=== PATIENT | male | born 1940 | race Caucasian/White ===

== ENCOUNTER 2018-05-04 10:34 | Day surgery (SDC) | payer MEDICARE, BC ==
[~2018-05-04] VITALS: Ht 182.9 cm; Wt 76.7 kg
[2018-05-04] VITALS (10 sets, daily range): BP systolic 112–153; BP diastolic 51–76
[2018-05-04] MEDS ORDERED: sod bicarbonate 150mEq in D5W 1,150 ML IV ONE (11:00)
[2018-05-04] MEDS ORDERED: diphenhydrAMINE 25mg capsule PO PRN (11:00)
[2018-05-04] MEDS ORDERED: CLOP75TA15 PO (11:05)
[2018-05-04] MEDS ORDERED: HYDR12.5 PO (11:05)
[2018-05-04] MEDS ORDERED: ESOM20CA PO (11:05)
[2018-05-04] MEDS ORDERED: FERR-119 PO (11:05)
[2018-05-04] MEDS ORDERED: BISO1TAB38 PO (11:05)
[2018-05-04] MEDS ORDERED: ATOR20TA PO (11:05)
[2018-05-04] MEDS ORDERED: BISO5TAB PO (11:05)
[2018-05-04] MEDS ORDERED: SPIR25TA5 PO (11:05)
[2018-05-04] MEDS ORDERED: EZET10TA14 PO (11:05)
[2018-05-04] MEDS ORDERED: CHOL10002 PO (11:05)
[2018-05-04] MEDS ORDERED: CALC-336 PO (11:05)
[2018-05-04] MEDS ORDERED: normal saline 1000ml 1,000 ML IV SCH ×2 (11:25→12:35)
[2018-05-04 11:46] LABS: BASOPHILS % (AUTO) 0.4 % (0-1); EOSINOPHILS # (AUTO) 0.2 X10'3 (0-0.9); EOSINOPHILS % (AUTO) 2.1 % (0-6); HEMATOCRIT 41.7 % (42.0-52.0); HEMOGLOBIN 13.6 g/dl (14.0-17.9); LYMPHOCYTES # (AUTO) 2.1 X10'3 (1.1-4.8); LYMPHOCYTES % (AUTO) 20.7 % (21-51); MEAN CORPUSCULAR HEMOGLOBIN 31.7 PG (27.0-31.0); MEAN CORPUSCULAR HGB CONC 32.7 % (33.0-36.5); MEAN CORPUSCULAR VOLUME 96.8 FL (78-98); MEAN PLATELET VOLUME 8.8 FL (7.4-10.4); MONOCYTES % (AUTO) 10.5 % (2-12); NEUTROPHILS # (AUTO) 6.6 X10'3 (1.8-7.7); NEUTROPHILS % (AUTO) 66.3 % (42-75); PLATELET COUNT 196 X10'3 (140-440); RED BLOOD COUNT 4.31 X10'6 (4.70-6.10); RED CELL DISTRIBUTION WIDTH 13.4 % (11.5-14.5); WHITE BLOOD COUNT 9.9 X10'3 (4.5-11.0)
[2018-05-04 11:54] LABS: ALBUMIN 3.3 G/DL (3.4-5.0); ANION GAP 9 (8-16); BLOOD UREA NITROGEN 18 MG/DL (7-18); BUN/CREATININE RATIO 13.8 (5.4-32.0); CALCIUM 9.5 MG/DL (8.5-10.1); CHLORIDE 103 MMOL/L (99-107); GLUCOSE 107 MG/DL (70-104); MAGNESIUM 1.8 MG/DL (1.5-2.4); POTASSIUM 3.8 MMOL/L (3.5-5.1); SODIUM 139 MMOL/L (135-145); TOTAL CARBON DIOXIDE 27.5 MMOL/L (24-32); eGFR 53 ML/MIN
[2018-05-04 12:09] LABS: INR 1.1 INR; PROTHROMBIN TIME 10.7 SECONDS (9.0-12.0)
[2018-05-04] MEDS ORDERED: nitroGLYCERIN-Tridil 50MG/D5W 250 ML IV ONE (12:24)
[2018-05-04] MEDS ORDERED: iohexol 350 MG/ML 50ML vial IV ONE (12:25)
[2018-05-04] MEDS ORDERED: midazolam 2 mg/2 ml injection ONE ×2 (12:25→13:11)
[2018-05-04] MEDS ORDERED: iohexol 350MG/ML 100ml bottle IV ONE (12:25)
[2018-05-04] MEDS ORDERED: LIDOcaine 1% (10mg/ml)w/preservative injection 20ml MDV ONE (12:25)
[2018-05-04] MEDS ORDERED: heparin 1,000unit/ml 10ml vial 10 ML ONE (12:25)
[2018-05-04] MEDS ORDERED: fentaNYL/PF 50MCG/1 ML 2ML syringe ONE (12:25)
[2018-05-04] MEDS ORDERED: verapamil 2.5 mg/ml inj IV ONE (12:26)
== END 2018-05-04 17:00 | disposition home or self-care (01) ==
LOC: SSTAY O 10:34
PROVIDERS: ATTEND Internal Medicine Cardiovascular Disease
DX: I25.118 Atherosclerotic heart disease of native coronary artery with other forms of angina pectoris (principal); I45.19 Other right bundle-branch block; I10 Essential (primary) hypertension; E78.5 Hyperlipidemia, unspecified; H91.8X3 Other specified hearing loss, bilateral; Z72.89 Other problems related to lifestyle; Z95.5 Presence of coronary angioplasty implant and graft; Z79.01 Long term (current) use of anticoagulants; Z86.14 Personal history of Methicillin resistant Staphylococcus aureus infection; Z87.442 Personal history of urinary calculi; Z96.652 Presence of left artificial knee joint; Z79.899 Other long term (current) drug therapy; Z98.890 Other specified postprocedural states; Z80.9 Family history of malignant neoplasm, unspecified
CPT/HCPCS: 36415; 80048; 83735; 85025; 85610; 93005; 93458; 99152; 99153; J1644; J2001; J2250; J3010; J7030; Q0163; Q9967; A4620; C1769; C1894; J3490

== ENCOUNTER 2018-05-18 05:32 | Inpatient (IN) | payer MEDICARE, BC ==
[2018-05-16 13:26] LABS: ABG BASE EXCESS 0.2 mmol/L (-2.0-3.0); ABG HCO3 23.3 mmol/L (22.0-26.0); ABG OXYGEN SATURATION 95.8 % (95-98); ABG PCO2 (T) 33.7 mmHg (35.0-48.0); ABG PH (T) 7.458 (7.350-7.450); ABG PO2 (T) 78.5 mmHg (83-108); ALLEN'S TEST Positive; FCOHb 0.6 % (0.5-1.5); FMetHb 0.1 % (0.3-1.12); FO2Hb 95.1 % (94-100); TOTAL HEMOGLOBIN 14.9 G/dl (14.0-18.0)
[2018-05-16 13:46] LABS: BASOPHILS % (AUTO) 0.3 % (0-1); EOSINOPHILS # (AUTO) 0.1 X10'3 (0-0.9); EOSINOPHILS % (AUTO) 1.2 % (0-6); LYMPHOCYTES % (AUTO) 19.8 % (21-51); MEAN CORPUSCULAR HGB CONC 33.2 % (33.0-36.5); MEAN CORPUSCULAR VOLUME 96.5 FL (78-98); MEAN PLATELET VOLUME 8.8 FL (7.4-10.4); MONOCYTES # (AUTO) 1.1 X10'3 (0-0.9); MONOCYTES % (AUTO) 10.5 % (2-12); NEUTROPHILS # (AUTO) 7.1 X10'3 (1.8-7.7); NEUTROPHILS % (AUTO) 68.2 % (42-75); PRE OP HEMATOCRIT 41.9 % (42.0-52.0); PRE OP HEMOGLOBIN 13.9 g/dL (14.0-17.9); PRE OP PLATELET COUNT 186 X10'3 (140-440); RED BLOOD COUNT 4.35 X10'6 (4.70-6.10); RED CELL DISTRIBUTION WIDTH 13.7 % (11.5-14.5)
[2018-05-16 13:49] LABS: CLARITY,URINE CLEAR (Clear); COLOR,URINE YELLOW (Yellow); GLUCOSE, URINE 100 mg/dl (Neg); KETONES,URINE NEGATIVE (Neg); LEUKOCYTE ESTERASE ,URINE NEGATIVE (Neg); NITRITES, URINE NEGATIVE (Neg); OCCULT BLOOD,URINE NEGATIVE (Neg); PROTEIN,URINE NEGATIVE (Neg); UROBILINOGEN,URINE 0.2 E.U/dL (0.2-1.0)
[2018-05-16 13:50] LABS: UA COLLECTION TYPE NON-SPECIFIED
[2018-05-16 13:58] LABS: PRE OP PROTIME 10.5 SECONDS (9.0-12.0)
[2018-05-16 13:59] LABS: HEMOGLOBIN A1C 6.3 % (4.5-6.2)
[2018-05-16 14:05] LABS: ALBUMIN 3.3 G/DL (3.4-5.0); ALBUMIN/GLOBULIN RATIO 0.9 (1.1-1.5); ALKALINE PHOSPHATASE 98 IU/L (46-116); BLOOD UREA NITROGEN 22 MG/DL (7-18); BUN/CREATININE RATIO 17.6 (5.4-32.0); CALCIUM 9.6 MG/DL (8.5-10.1); CHLORIDE 105 MMOL/L (99-107); CREATININE 1.25 MG/DL (0.60-1.10); PRE OP ALT 44 U/L (30-65); PRE OP ANION GAP 7 (8-16); PRE OP AST 29 U/L (10-37); PRE OP BILIRUB, TOTAL 0.5 MG/DL (0.0-1.0); PRE OP GLUCOSE 102 MG/DL (70-104); PRE OP POTASSIUM 4.2 MMOL/L (3.4-5.1); PRE OP SODIUM 138 MMOL/L (135-145); TOTAL CARBON DIOXIDE 25.8 MMOL/L (24-32); TOTAL PROTEIN 6.8 G/DL (6.4-8.2); eGFR 56 ML/MIN
[2018-05-18] VITALS (19 sets, daily range): BP systolic 100–141; BP diastolic 48–65
[~2018-05-18] VITALS: Ht 182.9 cm; Wt 75.3 kg
[~2018-05-18 05:32] MED LIST: ATOR20TA PO; BISO5TAB PO; CALC-336 PO; CHOL10002 PO; DOCUMENT DATE & TIME OF BETA-BLOCKER PO ONE; ESOM20CA PO; EZET10TA14 PO; FERR-119 PO; HYDR12.5 PO; LORazepam 2 mg/ml vial IV PRN; SPIR25TA5 PO; cefazolin/dext.iso 2gm/50ml 50 ML IV ONE; famotidine 20mg tablet PO ONE; insulin regular, human 100 UNIT in normal saline 100ml IV soln 99 ML IV SCH; metoprolol tartrate 12.5mg (1/2 tablet) PO ONE; ringers solution, lacted 1,000 ML IV SCH; vancomycin inj 1,500 MG in normal saline 300ml IV soln IV ONE
[2018-05-18] MEDS ORDERED: LIDOcaine 1% (10mg/ml) 2ml vial ONE (05:48)
[2018-05-18] MEDS: mupirocin 2% nasal ointment 1gm UD NS SCH ×4 (06:49→20:30)
[2018-05-18] MEDS ORDERED: SUFENTANIL CITRATE 50 MCG/ML 2ml ampule IV ONE (06:51)
[2018-05-18] MEDS ORDERED: MIDAZolam 1mg/ml 10ml vial ONE (06:51)
[2018-05-18] MEDS ORDERED: aminocaproic acid 250 MG/1 ML inj. ONE ×2 (06:52→09:00)
[2018-05-18] MEDS ORDERED: sevoflurane 250ml liquid IH ONE (06:52)
[2018-05-18] MEDS ORDERED: propofol inj 20 ML IV ONE (06:58)
[2018-05-18] MEDS ORDERED: rocuronium 10mg/ml inj IV ONE ×2 (06:58)
[2018-05-18 07:45] LABS: ABG BASE EXCESS -1.5 mmol/L (-2.0-3.0); ABG HCO3 23.5 mmol/L (22.0-26.0); ABG OXYGEN SATURATION 99.5 % (95-98); ABG PCO2 40.9 mmHg (35.0-45.0); ABG PH 7.378 (7.350-7.450); ABG PO2 298.1 mmHg (60.0-100.0); CL (ABG) 104 mmol/L (99-107); FCOHb 0.6 % (0.5-1.5); FMetHb 0.3 % (0.3-1.12); FO2Hb 98.6 % (94-100); GLUCOSE (ABG) 104 mg/dl (70-105); IONIZED CA (ABG) 1.21 mmol/L (1.03-1.32); NA (ABG) 137 mmol/L (135-145); TOTAL HEMOGLOBIN 12.6 G/dl (14.0-18.0)
[2018-05-18 08:45] LABS: ABG BASE EXCESS VENOUS -2.8 mmol/L; ABG HCO3 VENOUS 23.2 mmol/L; ABG PCO2 VENOUS 45.2 mmHg; ABG PO2 VENOUS 53.8 mmHg; CL (ABG) 104 mmol/L (99-107); FCOHb VENOUS 0.8 %; FMetHb VENOUS 0.2 %; GLUCOSE (ABG) 103 mg/dl (70-105); IONIZED CA (ABG) 1.18 mmol/L (1.03-1.32); K (ABG) 4.4 mmol/L (3.3-5.1); NA (ABG) 135 mmol/L (135-145); TOTAL HEMOGLOBIN 12.4 G/dl (14.0-18.0)
[2018-05-18] MEDS ORDERED: methylPREDNISolone sod succ 1000mg vial ONE (09:00)
[2018-05-18] MEDS ORDERED: potassium Cl 2 mEq/ml inj IV ONE (09:00)
[2018-05-18] MEDS ORDERED: magnesium sulf 1 GM/2 ML ONE (09:00)
[2018-05-18] MEDS ORDERED: phenylephrine 10mg/ml inj. ONE (09:00)
[2018-05-18] MEDS ORDERED: sodium bicarbonate (8.4%) 1 mEq/ml syringe ONE (09:00)
[2018-05-18] MEDS ORDERED: heparin 10,000 units/1 ML INJ ONE (09:00)
[2018-05-18] MEDS ORDERED: albumin (human) 25% 100 ML IV solution IV ONE (09:00)
[2018-05-18] MEDS ORDERED: calcium chloride 100 MG/1 ML inj IV ONE (09:00)
[2018-05-18] MEDS ORDERED: heparin 1,000 units/ml 10ml inj ONE (09:00)
[2018-05-18] MEDS ORDERED: LIDOcaine 2% (20 mg/ml) 5ml cardiac syringe ONE (09:00)
[2018-05-18 09:21] LABS: ABG BASE EXCESS VENOUS -0.7 mmol/L; ABG HCO3 VENOUS 24.7 mmol/L; ABG PCO2 VENOUS 43.8 mmHg; ABG PO2 VENOUS 52.7 mmHg; CL (ABG) 103 mmol/L (99-107); FCOHb VENOUS 0.4 %; FHHb VENOUS 14.2 %; FMetHb VENOUS 0.5 %; FO2Hb VENOUS 84.9 %; GLUCOSE (ABG) 113 mg/dl (70-105); IONIZED CA (ABG) 1.07 mmol/L (1.03-1.32); K (ABG) 5.3 mmol/L (3.3-5.1); NA (ABG) 131 mmol/L (135-145); TOTAL HEMOGLOBIN 10.2 G/dl (14.0-18.0)
[2018-05-18] MEDS ORDERED: heparin 10,000 units/1 ML INJ IR ONE (09:36)
[2018-05-18 10:20] LABS: ABG BASE EXCESS VENOUS 0.3 mmol/L; ABG HCO3 VENOUS 25.8 mmol/L; ABG PCO2 VENOUS 45.1 mmHg; ABG PO2 VENOUS 52.5 mmHg; CL (ABG) 104 mmol/L (99-107); FCOHb VENOUS 0.4 %; FHHb VENOUS 15.2 %; FMetHb VENOUS 0.4 %; GLUCOSE (ABG) 130 mg/dl (70-105); IONIZED CA (ABG) 1.25 mmol/L (1.03-1.32); K (ABG) 5.2 mmol/L (3.3-5.1); NA (ABG) 132 mmol/L (135-145); TOTAL HEMOGLOBIN 10.8 G/dl (14.0-18.0)
[2018-05-18] MEDS ORDERED: niCARDipine-NS 40mg/200ml IVPB 200 ML IV PRN (11:01)
[2018-05-18] MEDS ORDERED: nitroGLYCERIN-Tridil 50MG/D5W 250 ML IV PRN (11:01)
[2018-05-18] MEDS ORDERED: DOPamine 400mg/D5W 250ml 250 ML IV PRN (11:01)
[2018-05-18] MEDS ORDERED: insulin regular, human inj. 100 UNITS in normal saline 100ml IV soln 100 ML IV SCH ×2 (11:05)
[2018-05-18] MEDS ORDERED: sodium phosphate inj. 15 MMOL in dextrose 5%-water 150 ML IV PRN (11:05)
[2018-05-18] MEDS ORDERED: Neutra Phos packet PO PRN (11:05)
[2018-05-18] MEDS ORDERED: pantoprazole 40 MG vial IV ONE (11:05)
[2018-05-18] MEDS ORDERED: potassium Cl 20mEq/100mL bag 100 ML IV PRN ×3 (11:05)
[2018-05-18] MEDS ORDERED: metoclopramide 5 mg/ml inj IV PRN (11:05)
[2018-05-18] MEDS ORDERED: magnesium 4gm in 100ml NS 100 ML IV PRN (11:05)
[2018-05-18] MEDS ORDERED: acetaminophen 325mg tablet PO PRN (11:05)
[2018-05-18] MEDS ORDERED: dextrose 50%-water 50ml dispensing syringe IV PRN (11:05)
[2018-05-18] MEDS ORDERED: morphine 4 MG/ML inj SYRINge IV PRN (11:05)
[2018-05-18] MEDS ORDERED: HYDROcodone/acetaminophen 10/325mg tab PO PRN ×2 (11:05)
[2018-05-18] MEDS ORDERED: magnesium hydroxide 30ml (MOM) UD suspension PO PRN (11:05)
[2018-05-18] MEDS ORDERED: sodium phosphate inj. 30 MMOL in dextrose 5%-water 250 ML IV PRN (11:05)
[2018-05-18] MEDS ORDERED: normal saline 250ml IV soln 250 ML IV PRN (11:05)
[2018-05-18] MEDS ORDERED: ondansetron/PF 4mg/2ml inj IV PRN (11:05)
[2018-05-18 11:31] LABS: ABG BASE EXCESS -0.5 mmol/L (-2.0-3.0); ABG HCO3 25.8 mmol/L (22.0-26.0); ABG OXYGEN SATURATION 94.8 % (95-98); ABG PCO2 (T) 48.9 mmHg (35.0-48.0); ABG PH (T) 7.341 (7.350-7.450); ABG PO2 (T) 82.9 mmHg (83-108); FCOHb 0.2 % (0.5-1.5); FMetHb 0.3 % (0.3-1.12); FO2Hb 94.3 % (94-100); MINUTE VOLUME 7 L/min; PEEP 5 cm H2O; RESPIRATORY RATE 14 b/min; RESPIRATORY RATE (OBSERVED) 14 b/min; TIDAL VOLUME 500 mL; TOTAL HEMOGLOBIN 13.9 G/dl (14.0-18.0)
[2018-05-18 11:37] LABS: BASOPHILS % (AUTO) 0.2 % (0-1); EOSINOPHILS # (AUTO) 0.2 X10'3 (0-0.9); EOSINOPHILS % (AUTO) 1.5 % (0-6); HEMATOCRIT 39.4 % (42.0-52.0); MEAN CORPUSCULAR HEMOGLOBIN 31.8 PG (27.0-31.0); MEAN CORPUSCULAR VOLUME 96.5 FL (78-98); MEAN PLATELET VOLUME 8.8 FL (7.4-10.4); MONOCYTES # (AUTO) 0.5 X10'3 (0-0.9); MONOCYTES % (AUTO) 3.7 % (2-12); NEUTROPHILS # (AUTO) 12.6 X10'3 (1.8-7.7); NEUTROPHILS % (AUTO) 87.6 % (42-75); PLATELET COUNT 117 X10'3 (140-440); RED BLOOD COUNT 4.09 X10'6 (4.70-6.10); RED CELL DISTRIBUTION WIDTH 13.8 % (11.5-14.5); WHITE BLOOD COUNT 14.3 X10'3 (4.5-11.0)
[2018-05-18 11:55] LABS: ALANINE AMINOTRANSFERASE 39 U/L (12-78); ALBUMIN 2.8 G/DL (3.4-5.0); ALBUMIN/GLOBULIN RATIO 1.2 (1.1-1.5); ALKALINE PHOSPHATASE 65 IU/L (46-116); ANION GAP 5 (8-16); ASPARTATE AMINO TRANSFERASE 44 U/L (10-37); BLOOD UREA NITROGEN 19 MG/DL (7-18); BUN/CREATININE RATIO 17.8 (5.4-32.0); CHLORIDE 106 MMOL/L (99-107); CREATININE 1.07 MG/DL (0.60-1.10); GLUCOSE 136 MG/DL (70-104); MAGNESIUM 2.1 MG/DL (1.5-2.4); PHOSPHORUS 2.7 MG/DL (2.3-4.5); POTASSIUM 4.9 MMOL/L (3.5-5.1); SODIUM 138 MMOL/L (135-145); TOTAL CARBON DIOXIDE 27.4 MMOL/L (24-32); TOTAL PROTEIN 5.1 G/DL (6.4-8.2); eGFR 67 ML/MIN
[2018-05-18 12:00] LABS: INR 1.2 INR; PARTIAL THROMBOPLASTIN TIME 34 SECONDS (22-32); PROTHROMBIN TIME 12.1 SECONDS (9.0-12.0)
[2018-05-18] MEDS: albumin (Human) 5% 250ml 250 ML IV PRN ×3 (12:30→17:03)
[2018-05-18] MEDS: sodium chloride 0.45% 1,000 ML IV SCH (12:32)
[2018-05-18] MEDS: morphine 4 MG/ML inj SYRINge IV PRN ×2 (12:49→13:40)
[2018-05-18] MEDS: insulin Lispro (HumaLOG) vial - multi-dose SQ SCH ×2 (12:50→16:43)
[2018-05-18] MEDS: magnesium 2GM in 50ml NS 50 ML IV PRN (12:58)
[2018-05-18 16:16] LABS: ABG BASE EXCESS -2.2 mmol/L (-2.0-3.0); ABG HCO3 22.3 mmol/L (22.0-26.0); ABG OXYGEN SATURATION 97.6 % (95-98); ABG PCO2 (T) 35.8 mmHg (35.0-48.0); ABG PH (T) 7.409 (7.350-7.450); ABG PO2 (T) 106.6 mmHg (83-108); FCOHb 0.3 % (0.5-1.5); FMetHb 0.2 % (0.3-1.12); FO2Hb 97.1 % (94-100); MINUTE VOLUME 9 L/min; PEEP 5 cm H2O; RESPIRATORY RATE (OBSERVED) 12 b/min; TOTAL HEMOGLOBIN 12.3 G/dl (14.0-18.0)
[2018-05-18] MEDS: ceFAZolin 1GM/D5W- ADD-VANTAGE 50 ML IV SCH (16:43)
[2018-05-18 17:06] LABS: BASOPHILS % (AUTO) 0 % (0-1); EOSINOPHILS % (AUTO) 0 % (0-6); HEMATOCRIT 35.2 % (42.0-52.0); HEMOGLOBIN 11.7 g/dl (14.0-17.9); LYMPHOCYTES # (AUTO) 0.8 X10'3 (1.1-4.8); LYMPHOCYTES % (AUTO) 4.4 % (21-51); MEAN CORPUSCULAR HEMOGLOBIN 31.9 PG (27.0-31.0); MEAN CORPUSCULAR HGB CONC 33.1 % (33.0-36.5); MEAN CORPUSCULAR VOLUME 96.3 FL (78-98); MEAN PLATELET VOLUME 8.7 FL (7.4-10.4); MONOCYTES # (AUTO) 0.7 X10'3 (0-0.9); MONOCYTES % (AUTO) 3.9 % (2-12); NEUTROPHILS # (AUTO) 16.8 X10'3 (1.8-7.7); NEUTROPHILS % (AUTO) 91.7 % (42-75); PLATELET COUNT 113 X10'3 (140-440); RED BLOOD COUNT 3.66 X10'6 (4.70-6.10); RED CELL DISTRIBUTION WIDTH 13.6 % (11.5-14.5); WHITE BLOOD COUNT 18.3 X10'3 (4.5-11.0)
[2018-05-18 17:18] LABS: ALBUMIN 3.5 G/DL (3.4-5.0); ANION GAP 8 (8-16); BLOOD UREA NITROGEN 20 MG/DL (7-18); CALCIUM 8.6 MG/DL (8.5-10.1); CHLORIDE 108 MMOL/L (99-107); CREATININE 1.05 MG/DL (0.60-1.10); GLUCOSE 147 MG/DL (70-104); MAGNESIUM 2.5 MG/DL (1.5-2.4); PHOSPHORUS 2.3 MG/DL (2.3-4.5); SODIUM 140 MMOL/L (135-145); TOTAL CARBON DIOXIDE 23.9 MMOL/L (24-32); eGFR 68 ML/MIN
[2018-05-18] MEDS: docusate sod 100mg capsule PO SCH (20:34)
[2018-05-18] MEDS: vancomycin/NS 1 GM ADD-VANTAGE 250 ML IV SCH (22:12)
[2018-05-19] VITALS (23 sets, daily range): BP systolic 124–158; BP diastolic 42–80
[2018-05-19] MEDS: ceFAZolin 1GM/D5W- ADD-VANTAGE 50 ML IV SCH ×3 (02:18→16:00)
[2018-05-19 02:59] LABS: BASOPHILS % (AUTO) 0 % (0-1); EOSINOPHILS % (AUTO) 0 % (0-6); HEMATOCRIT 34.7 % (42.0-52.0); HEMOGLOBIN 11.6 g/dl (14.0-17.9); LYMPHOCYTES # (AUTO) 0.9 X10'3 (1.1-4.8); LYMPHOCYTES % (AUTO) 4.6 % (21-51); MEAN CORPUSCULAR HGB CONC 33.3 % (33.0-36.5); MEAN CORPUSCULAR VOLUME 96.1 FL (78-98); MEAN PLATELET VOLUME 9.3 FL (7.4-10.4); MONOCYTES # (AUTO) 0.9 X10'3 (0-0.9); MONOCYTES % (AUTO) 4.7 % (2-12); NEUTROPHILS # (AUTO) 17.7 X10'3 (1.8-7.7); NEUTROPHILS % (AUTO) 90.7 % (42-75); PLATELET COUNT 103 X10'3 (140-440); RED BLOOD COUNT 3.61 X10'6 (4.70-6.10); RED CELL DISTRIBUTION WIDTH 13.9 % (11.5-14.5); WHITE BLOOD COUNT 19.6 X10'3 (4.5-11.0)
[2018-05-19 03:18] LABS: INR 1.1 INR; PROTHROMBIN TIME 11.5 SECONDS (9.0-12.0)
[2018-05-19 03:19] LABS: PARTIAL THROMBOPLASTIN TIME 27 SECONDS (22-32)
[2018-05-19 03:54] LABS: ALANINE AMINOTRANSFERASE 33 U/L (12-78); ALBUMIN 3.3 G/DL (3.4-5.0); ALBUMIN/GLOBULIN RATIO 1.5 (1.1-1.5); ALKALINE PHOSPHATASE 49 IU/L (46-116); ANION GAP 10 (8-16); ASPARTATE AMINO TRANSFERASE 43 U/L (10-37); BILIRUBIN,TOTAL 0.8 MG/DL (0.1-1.0); BLOOD UREA NITROGEN 19 MG/DL (7-18); BUN/CREATININE RATIO 17.4 (5.4-32.0); CALCIUM 8.5 MG/DL (8.5-10.1); CHLORIDE 106 MMOL/L (99-107); CREATININE 1.09 MG/DL (0.60-1.10); GLUCOSE 158 MG/DL (70-104); MAGNESIUM 2.2 MG/DL (1.5-2.4); POTASSIUM 4.6 MMOL/L (3.5-5.1); SODIUM 139 MMOL/L (135-145); TOTAL CARBON DIOXIDE 23.3 MMOL/L (24-32); TOTAL PROTEIN 5.5 G/DL (6.4-8.2); eGFR 65 ML/MIN
[2018-05-19 04:11] LABS: PHOSPHORUS 2.7 MG/DL (2.3-4.5)
[2018-05-19] MEDS: magnesium 2GM in 50ml NS 50 ML IV PRN (04:46)
[2018-05-19] MEDS: docusate sod 100mg capsule PO SCH ×2 (07:59→20:06)
[2018-05-19] MEDS: vancomycin/NS 1 GM ADD-VANTAGE 250 ML IV SCH ×2 (07:59→20:08)
[2018-05-19] MEDS ORDERED: aspirin 325mg tablet, delayed-release (Ecotrin) PO SCH (08:00)
[2018-05-19] MEDS: mupirocin 2% nasal ointment 1gm UD NS SCH ×4 (08:00→20:07)
[2018-05-19] MEDS ORDERED: atorvastatin 10mg tablet PO SCH (08:00)
[2018-05-19] MEDS: metoprolol tartrate 12.5mg (1/2 tablet) PO SCH ×2 (08:00→20:07)
[2018-05-19] MEDS: insulin Lispro (HumaLOG) vial - multi-dose SQ SCH ×3 (09:00→18:00)
[2018-05-19] MEDS: atorvastatin 20mg tablet PO SCH (21:18)
[2018-05-20] VITALS (24 sets, daily range): BP systolic 104–155; BP diastolic 52–76
[2018-05-20] MEDS: ceFAZolin 1GM/D5W- ADD-VANTAGE 50 ML IV SCH (00:01)
[2018-05-20 05:06] LABS: BASOPHILS % (AUTO) 0 % (0-1); EOSINOPHILS # (AUTO) 0.2 X10'3 (0-0.9); EOSINOPHILS % (AUTO) 1.1 % (0-6); HEMATOCRIT 32.9 % (42.0-52.0); HEMOGLOBIN 10.8 g/dl (14.0-17.9); LYMPHOCYTES # (AUTO) 1.8 X10'3 (1.1-4.8); LYMPHOCYTES % (AUTO) 8.6 % (21-51); MEAN CORPUSCULAR HEMOGLOBIN 31.8 PG (27.0-31.0); MEAN CORPUSCULAR HGB CONC 32.9 % (33.0-36.5); MEAN CORPUSCULAR VOLUME 96.5 FL (78-98); MEAN PLATELET VOLUME 9.4 FL (7.4-10.4); MONOCYTES # (AUTO) 1.8 X10'3 (0-0.9); MONOCYTES % (AUTO) 8.7 % (2-12); NEUTROPHILS # (AUTO) 17.1 X10'3 (1.8-7.7); NEUTROPHILS % (AUTO) 81.6 % (42-75); PLATELET COUNT 102 X10'3 (140-440); RED BLOOD COUNT 3.41 X10'6 (4.70-6.10); RED CELL DISTRIBUTION WIDTH 13.9 % (11.5-14.5); WHITE BLOOD COUNT 20.9 X10'3 (4.5-11.0)
[2018-05-20 05:30] LABS: PLATELET ESTIMATE NORMAL; TOTAL CELLS COUNTED 100
[2018-05-20 05:52] LABS: ANION GAP 9 (8-16); BLOOD UREA NITROGEN 20 MG/DL (7-18); BUN/CREATININE RATIO 21.3 (5.4-32.0); CALCIUM 8.6 MG/DL (8.5-10.1); CHLORIDE 107 MMOL/L (99-107); CREATININE 0.94 MG/DL (0.60-1.10); GLUCOSE 125 MG/DL (70-104); MAGNESIUM 2.2 MG/DL (1.5-2.4); PHOSPHORUS 3.1 MG/DL (2.3-4.5); POTASSIUM 4.4 MMOL/L (3.5-5.1); SODIUM 141 MMOL/L (135-145); TOTAL CARBON DIOXIDE 24.9 MMOL/L (24-32); eGFR 77 ML/MIN
[2018-05-20] MEDS: pantoprazole 40mg Tablet.DR PO SCH (07:30)
[2018-05-20] MEDS: docusate sod 100mg capsule PO SCH ×2 (08:00→20:10)
[2018-05-20] MEDS: metoprolol tartrate 12.5mg (1/2 tablet) PO SCH ×2 (08:00→20:10)
[2018-05-20] MEDS: mupirocin 2% nasal ointment 1gm UD NS SCH ×3 (08:00→20:11)
[2018-05-20] MEDS: aspirin 81mg tablet.DR PO SCH (08:00)
[2018-05-20] MEDS: insulin Lispro (HumaLOG) vial - multi-dose SQ SCH (09:00)
[2018-05-20] MEDS: sodium chloride 0.45% 1,000 ML IV SCH (11:30)
[2018-05-20] MEDS: atorvastatin 20mg tablet PO SCH (20:10)
[2018-05-21] VITALS (24 sets, daily range): BP systolic 87–136; BP diastolic 56–73
[2018-05-21 05:09] LABS: BASOPHILS % (AUTO) 0.2 % (0-1); EOSINOPHILS % (AUTO) 0.1 % (0-6); HEMATOCRIT 31.4 % (42.0-52.0); HEMOGLOBIN 10.5 g/dl (14.0-17.9); LYMPHOCYTES # (AUTO) 1.6 X10'3 (1.1-4.8); LYMPHOCYTES % (AUTO) 11.3 % (21-51); MEAN CORPUSCULAR HEMOGLOBIN 32.1 PG (27.0-31.0); MEAN CORPUSCULAR HGB CONC 33.5 % (33.0-36.5); MEAN CORPUSCULAR VOLUME 95.9 FL (78-98); MEAN PLATELET VOLUME 9.3 FL (7.4-10.4); MONOCYTES # (AUTO) 1.8 X10'3 (0-0.9); MONOCYTES % (AUTO) 12.9 % (2-12); NEUTROPHILS # (AUTO) 10.7 X10'3 (1.8-7.7); NEUTROPHILS % (AUTO) 75.5 % (42-75); PLATELET COUNT 99 X10'3 (140-440); RED BLOOD COUNT 3.28 X10'6 (4.70-6.10); RED CELL DISTRIBUTION WIDTH 14.2 % (11.5-14.5); WHITE BLOOD COUNT 14.2 X10'3 (4.5-11.0)
[2018-05-21 05:33] LABS: ALBUMIN 2.7 G/DL (3.4-5.0); ANION GAP 9 (8-16); BLOOD UREA NITROGEN 22 MG/DL (7-18); BUN/CREATININE RATIO 25.3 (5.4-32.0); CALCIUM 8.1 MG/DL (8.5-10.1); CHLORIDE 107 MMOL/L (99-107); CREATININE 0.87 MG/DL (0.60-1.10); GLUCOSE 107 MG/DL (70-104); PHOSPHORUS 2.3 MG/DL (2.3-4.5); POTASSIUM 3.6 MMOL/L (3.5-5.1); SODIUM 140 MMOL/L (135-145); TOTAL CARBON DIOXIDE 23.8 MMOL/L (24-32); eGFR 85 ML/MIN
[2018-05-21 06:31] LABS: ABG BASE EXCESS -0.3 mmol/L (-2.0-3.0); ABG HCO3 24.3 mmol/L (22.0-26.0); ABG OXYGEN SATURATION 99.3 % (95-98); ABG PCO2 39.6 mmHg (35.0-45.0); ABG PH 7.406 (7.350-7.450); CL (ABG) 103 mmol/L (99-107); FCOHb 0.2 % (0.5-1.5); FMetHb 0.5 % (0.3-1.12); FO2Hb 98.6 % (94-100); GLUCOSE (ABG) 111 mg/dl (70-105); IONIZED CA (ABG) 1.06 mmol/L (1.03-1.32); K (ABG) 5.3 mmol/L (3.3-5.1); NA (ABG) 130 mmol/L (135-145); TOTAL HEMOGLOBIN 10.3 G/dl (14.0-18.0)
[2018-05-21 06:31] LABS: ACTIVATED CLOTTING TIME 134 SEC (101-148)
[2018-05-21 06:31] LABS: ABG BASE EXCESS -1.3 mmol/L (-2.0-3.0); ABG HCO3 23.6 mmol/L (22.0-26.0); ABG OXYGEN SATURATION 99.2 % (95-98); ABG PCO2 40.4 mmHg (35.0-45.0); ABG PH 7.385 (7.350-7.450); CL (ABG) 104 mmol/L (99-107); FMetHb 0.4 % (0.3-1.12); FO2Hb 98.8 % (94-100); GLUCOSE (ABG) 118 mg/dl (70-105); IONIZED CA (ABG) 1.09 mmol/L (1.03-1.32); K (ABG) 5.4 mmol/L (3.3-5.1); NA (ABG) 131 mmol/L (135-145); TOTAL HEMOGLOBIN 10.6 G/dl (14.0-18.0)
[2018-05-21 06:31] LABS: ABG BASE EXCESS -0.9 mmol/L (-2.0-3.0); ABG HCO3 23.9 mmol/L (22.0-26.0); ABG OXYGEN SATURATION 99.1 % (95-98); ABG PH 7.394 (7.350-7.450); CL (ABG) 103 mmol/L (99-107); FCOHb 0.3 % (0.5-1.5); FMetHb 0.4 % (0.3-1.12); FO2Hb 98.4 % (94-100); GLUCOSE (ABG) 109 mg/dl (70-105); IONIZED CA (ABG) 1.05 mmol/L (1.03-1.32); K (ABG) 5.6 mmol/L (3.3-5.1); NA (ABG) 131 mmol/L (135-145); TOTAL HEMOGLOBIN 10.3 G/dl (14.0-18.0)
[2018-05-21 06:31] LABS: ACT @ 1.70 U 333 SEC (193-297); ACT @ 2.84 U 467 SEC (260-420); BASELINE ACT 135 SEC (101-148); PATIENT WEIGHT 80.0k KG
[2018-05-21] MEDS ORDERED: potassium Cl 20 mEq SR tablet PO PRN (06:50)
[2018-05-21] MEDS: docusate sod 100mg capsule PO SCH ×2 (07:12→19:07)
[2018-05-21] MEDS: pantoprazole 40mg Tablet.DR PO SCH (07:12)
[2018-05-21] MEDS: mupirocin 2% nasal ointment 1gm UD NS SCH ×2 (07:12→19:06)
[2018-05-21] MEDS: aspirin 81mg tablet.DR PO SCH (07:13)
[2018-05-21] MEDS: metoprolol tartrate 12.5mg (1/2 tablet) PO SCH ×2 (07:13→19:07)
[2018-05-21] MEDS: atorvastatin 20mg tablet PO SCH (21:41)
[2018-05-21 22:01] LABS: MAGNESIUM 2.1 MG/DL (1.5-2.4); POTASSIUM 3.9 MMOL/L (3.5-5.1)
[2018-05-21] MEDS: potassium Cl 20 mEq SR tablet PO PRN (22:23)
[2018-05-22] VITALS (12 sets, daily range): BP systolic 94–126; BP diastolic 55–77
[2018-05-22] MEDS: potassium Cl 20 mEq SR tablet PO PRN ×2 (03:55→09:49)
[2018-05-22 05:10] LABS: BASOPHILS % (AUTO) 0.2 % (0-1); EOSINOPHILS # (AUTO) 0.2 X10'3 (0-0.9); EOSINOPHILS % (AUTO) 1.7 % (0-6); HEMATOCRIT 30.9 % (42.0-52.0); HEMOGLOBIN 10.2 g/dl (14.0-17.9); LYMPHOCYTES # (AUTO) 1.7 X10'3 (1.1-4.8); LYMPHOCYTES % (AUTO) 14.4 % (21-51); MEAN CORPUSCULAR HEMOGLOBIN 32.1 PG (27.0-31.0); MEAN CORPUSCULAR HGB CONC 33.1 % (33.0-36.5); MEAN CORPUSCULAR VOLUME 96.8 FL (78-98); MEAN PLATELET VOLUME 9.3 FL (7.4-10.4); MONOCYTES # (AUTO) 1.4 X10'3 (0-0.9); MONOCYTES % (AUTO) 11.3 % (2-12); NEUTROPHILS # (AUTO) 8.7 X10'3 (1.8-7.7); NEUTROPHILS % (AUTO) 72.4 % (42-75); PLATELET COUNT 114 X10'3 (140-440); RED BLOOD COUNT 3.19 X10'6 (4.70-6.10); RED CELL DISTRIBUTION WIDTH 13.9 % (11.5-14.5)
[2018-05-22 05:23] LABS: ALBUMIN 2.7 G/DL (3.4-5.0); ANION GAP 9 (8-16); BLOOD UREA NITROGEN 24 MG/DL (7-18); BUN/CREATININE RATIO 24.7 (5.4-32.0); CALCIUM 8.5 MG/DL (8.5-10.1); CHLORIDE 107 MMOL/L (99-107); CREATININE 0.97 MG/DL (0.60-1.10); GLUCOSE 108 MG/DL (70-104); MAGNESIUM 1.9 MG/DL (1.5-2.4); PHOSPHORUS 2.4 MG/DL (2.3-4.5); POTASSIUM 3.3 MMOL/L (3.5-5.1); SODIUM 140 MMOL/L (135-145); TOTAL CARBON DIOXIDE 23.7 MMOL/L (24-32); eGFR 75 ML/MIN
[2018-05-22] MEDS: mupirocin 2% nasal ointment 1gm UD NS SCH (07:48)
[2018-05-22] MEDS: aspirin 81mg tablet.DR PO SCH (07:48)
[2018-05-22] MEDS: pantoprazole 40mg Tablet.DR PO SCH (07:48)
[2018-05-22] MEDS: metoprolol tartrate 12.5mg (1/2 tablet) PO SCH (07:48)
[2018-05-22] MEDS: docusate sod 100mg capsule PO SCH (07:48)
[2018-05-22] MEDS ORDERED: metoprolol tartrate 12.5mg (1/2 tablet) PO ONE (09:30)
[2018-05-22] MEDS: sodium chloride 0.45% 1,000 ML IV SCH (11:01)
[2018-05-22] MEDS ORDERED: METO25TA6 PO (11:57)
[2018-05-22] MEDS ORDERED: ASPI-1071 PO (11:57)
[2018-05-22] MEDS ORDERED: metoprolol tartrate 25mg tablet PO SCH (20:00)
== END 2018-05-22 13:45 | disposition home health service (06) | DRG 236 ==
LOC: PAS IN 05:32 → EDSTATUS 07:30 → CICU 2S 11:05
PROVIDERS: ADMIT Thoracic Surgery (Cardiothoracic Vascular Surgery); ATTEND Thoracic Surgery (Cardiothoracic Vascular Surgery)
PROC: 06BP4ZZ Excision of Right Saphenous Vein, Percutaneous Endoscopic Approach (ICD-10-PCS; 2018-05-18)
PROC: 5A1221Z Performance of Cardiac Output, Continuous (ICD-10-PCS; 2018-05-18)
PROC: B24BZZ4 Ultrasonography of Heart with Aorta, Transesophageal (ICD-10-PCS; 2018-05-18)
PROC: 4A133B3 Monitoring of Arterial Pressure, Pulmonary, Percutaneous Approach (ICD-10-PCS; 2018-05-18)
PROC: 02HQ32Z Insertion of Monitoring Device into Right Pulmonary Artery, Percutaneous Approach (ICD-10-PCS; 2018-05-18)
PROC: 05HY33Z Insertion of Infusion Device into Upper Vein, Percutaneous Approach (ICD-10-PCS; 2018-05-18)
PROC: 021109W Bypass Coronary Artery, Two Arteries from Aorta with Autologous Venous Tissue, Open Approach (ICD-10-PCS; principal; 2018-05-18 06:52)
DX: I25.118 Atherosclerotic heart disease of native coronary artery with other forms of angina pectoris (principal); I50.32 Chronic diastolic (congestive) heart failure; I49.3 Ventricular premature depolarization; E78.5 Hyperlipidemia, unspecified; I11.0 Hypertensive heart disease with heart failure; K57.90 Diverticulosis of intestine, part unspecified, without perforation or abscess without bleeding; Z96.652 Presence of left artificial knee joint; Z98.61 Coronary angioplasty status; Z79.899 Other long term (current) drug therapy; Z86.14 Personal history of Methicillin resistant Staphylococcus aureus infection; Z87.442 Personal history of urinary calculi; Z80.9 Family history of malignant neoplasm, unspecified
CPT/HCPCS: 0232T; 93312; 93325; 36415; 36600; 71045; 71046; 80048; 80053; 81003; 82330; 82435; 82803; 82947; 82948; 83036; 83735; 84100; 84132; 84295; 85018; 85025; 85347; 85384; 85610; 85730; 86885; 86900; 86901; 86920; 87070; 93005; 93880; 93971; 94002; 94010; 94668; 97110; 97116; 97162; 97530; A6255; A6258; A6402; A6446; A6449; A7000; C1751; C9113; G0378; J0690; J1644; J1815; J2001; J2060; J2150; J2250; J2270; J2370; J2704; J2930; J3370; J3475; J3480; J3490; J7030; J7120; P9045; P9047

== ENCOUNTER 2018-10-04 12:28 | Inpatient (IN) | payer MEDICARE, BC ==
[~2018-10-04] VITALS: Ht 182.9 cm; Wt 90.0 kg
[~2018-10-04 12:28] MED LIST changes: +ASPI-1071 PO; -BISO5TAB PO; -DOCUMENT DATE & TIME OF BETA-BLOCKER PO ONE; -HYDR12.5 PO; -LORazepam 2 mg/ml vial IV PRN; +METO25TA6 PO; -cefazolin/dext.iso 2gm/50ml 50 ML IV ONE; -famotidine 20mg tablet PO ONE; -insulin regular, human 100 UNIT in normal saline 100ml IV soln 99 ML IV SCH; -metoprolol tartrate 12.5mg (1/2 tablet) PO ONE; -ringers solution, lacted 1,000 ML IV SCH; -vancomycin inj 1,500 MG in normal saline 300ml IV soln IV ONE
[2018-10-04 13:24] LABS: BASOPHILS # (AUTO) 0.1 X10'3 (0-0.2); BASOPHILS % (AUTO) 0.5 % (0-1); EOSINOPHILS % (AUTO) 0.2 % (0-6); HEMATOCRIT 38.9 % (42.0-52.0); HEMOGLOBIN 12.9 g/dl (14.0-17.9); LYMPHOCYTES # (AUTO) 1.4 X10'3 (1.1-4.8); LYMPHOCYTES % (AUTO) 10.9 % (21-51); MEAN CORPUSCULAR VOLUME 84.7 FL (78-98); MEAN PLATELET VOLUME 9.2 FL (7.4-10.4); MONOCYTES # (AUTO) 1.5 X10'3 (0-0.9); MONOCYTES % (AUTO) 11.9 % (2-12); NEUTROPHILS # (AUTO) 9.9 X10'3 (1.8-7.7); NEUTROPHILS % (AUTO) 76.5 % (42-75); PLATELET COUNT 219 X10'3 (140-440); RED BLOOD COUNT 4.59 X10'6 (4.70-6.10); RED CELL DISTRIBUTION WIDTH 17.6 % (11.5-14.5)
[2018-10-04 13:36] LABS: INR 1.2 INR
[2018-10-04 13:39] LABS: ALANINE AMINOTRANSFERASE 81 U/L (12-78); ALBUMIN/GLOBULIN RATIO 0.8 (1.1-1.5); ALKALINE PHOSPHATASE 225 IU/L (46-116); ANION GAP 10 (8-16); ASPARTATE AMINO TRANSFERASE 58 U/L (10-37); BILIRUBIN,TOTAL 1.2 MG/DL (0.1-1.0); BLOOD UREA NITROGEN 27 MG/DL (7-18); BUN/CREATININE RATIO 18.2 (5.4-32.0); CALCIUM 9.2 MG/DL (8.5-10.1); CHLORIDE 100 MMOL/L (99-107); CREATININE 1.48 MG/DL (0.60-1.10); GLUCOSE 121 MG/DL (70-104); POTASSIUM 3.3 MMOL/L (3.5-5.1); SODIUM 135 MMOL/L (135-145); TOTAL CARBON DIOXIDE 25.1 MMOL/L (24-32); TOTAL PROTEIN 6.8 G/DL (6.4-8.2); eGFR 46 ML/MIN
[2018-10-04] MEDS ORDERED: CefTRIAXone/D5W-Rocephin 1gm 50 ML IV ONE (16:35)
[2018-10-04] MEDS ORDERED: magnesium 4gm in 100ml NS 100 ML IV PRN (16:50)
[2018-10-04] MEDS ORDERED: magnesium hydroxide 30ml (MOM) UD suspension PO PRN (16:50)
[2018-10-04] MEDS ORDERED: mag hydrox/Alum hydrox/simeth 30ml oral suspension PO PRN (16:50)
[2018-10-04] MEDS ORDERED: acetaminophen 325mg tablet PO PRN ×2 (16:50)
[2018-10-04] MEDS ORDERED: ondansetron/PF 4mg/2ml inj IV PRN (16:50)
[2018-10-04] MEDS ORDERED: magnesium 2GM in 50ml NS 50 ML IV PRN (16:50)
[2018-10-04] MEDS ORDERED: potassium Cl 40MEQ/NS 500ml 500 ML IV PRN ×2 (16:50)
[2018-10-04] MEDS ORDERED: magnesium Cl slow-release 64mg tablet PO PRN (16:50)
[2018-10-04] MEDS ORDERED: CLOP75TA35 PO (17:02)
[2018-10-04] MEDS ORDERED: METO25TA6 PO (17:03)
--- NOTE | 2018-10-04 17:58 | NUR ---
Rectal tube placed per recommendation from GI specialist. Patient tolerated well with no difficulty. No stool returned. Patient has rectal tube in place to assist with decompression of the lower GI.
[2018-10-04] MEDS ORDERED: LORazepam 2 mg/ml vial IV PRN (18:45)
[2018-10-04] MEDS ORDERED: LORazepam 1 MG tablet PO PRN (18:45)
[2018-10-04] MEDS ORDERED: thiamine inj. 100 MG in normal saline 100ml IV soln 100 ML IV ONE (18:45)
[2018-10-04] MEDS ORDERED: folic acid inj. 2 MG, thiamine inj. 100 MG, MVI, adult No.4 with vit. K 10 ML in dextro... IV SCH ×4 (18:45)
--- NOTE | 2018-10-04 19:00 | NUR ---
Patient in room PCU 3023. I have received report from Kianna SAENZ and had the opportunity to ask questions and assume patient care.
[2018-10-04 19:15] VITALS: BP 135/80
--- NOTE | 2018-10-04 19:15 | NUR ---
Patient arrived to room 3023A via gurney from the ER, was able to scoot self onto bed. by side. All belongings on person. Paatient was oriented to room, call light, plan of care and all questions answered. Vital signs stable
[2018-10-04] MEDS: furosemide 40mg/4ml inj IV SCH (20:37)
[2018-10-04] MEDS: metoprolol tartrate 25mg tablet PO SCH (20:38)
[2018-10-04 23:00] VITALS: BP 103/66
[2018-10-05] VITALS (8 sets, daily range): BP systolic 109–129; BP diastolic 62–78
[2018-10-05] MEDS: heparin, porcine 5000 units/ml vial SQ SCH ×2 (00:53→09:08)
[2018-10-05 01:16] LABS: BASOPHILS # (AUTO) 0.2 X10'3 (0-0.2); BASOPHILS % (AUTO) 1.8 % (0-1); EOSINOPHILS # (AUTO) 0.1 X10'3 (0-0.9); EOSINOPHILS % (AUTO) 1.2 % (0-6); HEMATOCRIT 35.3 % (42.0-52.0); HEMOGLOBIN 11.7 g/dl (14.0-17.9); LYMPHOCYTES # (AUTO) 1.1 X10'3 (1.1-4.8); LYMPHOCYTES % (AUTO) 11.9 % (21-51); MEAN CORPUSCULAR HEMOGLOBIN 28.2 PG (27.0-31.0); MEAN CORPUSCULAR VOLUME 85.3 FL (78-98); MEAN PLATELET VOLUME 9.3 FL (7.4-10.4); MONOCYTES # (AUTO) 1.1 X10'3 (0-0.9); MONOCYTES % (AUTO) 11.6 % (2-12); NEUTROPHILS # (AUTO) 6.9 X10'3 (1.8-7.7); NEUTROPHILS % (AUTO) 73.5 % (42-75); PLATELET COUNT 178 X10'3 (140-440); RED BLOOD COUNT 4.14 X10'6 (4.70-6.10); WHITE BLOOD COUNT 9.4 X10'3 (4.5-11.0)
[2018-10-05 01:31] LABS: ALANINE AMINOTRANSFERASE 66 U/L (12-78); ALBUMIN 2.6 G/DL (3.4-5.0); ALBUMIN/GLOBULIN RATIO 0.8 (1.1-1.5); ALKALINE PHOSPHATASE 189 IU/L (46-116); ANION GAP 9 (8-16); ASPARTATE AMINO TRANSFERASE 43 U/L (10-37); BLOOD UREA NITROGEN 24 MG/DL (7-18); BUN/CREATININE RATIO 19.7 (5.4-32.0); CALCIUM 8.7 MG/DL (8.5-10.1); CHLORIDE 102 MMOL/L (99-107); CREATININE 1.22 MG/DL (0.60-1.10); GLUCOSE 115 MG/DL (70-104); MAGNESIUM 1.9 MG/DL (1.5-2.4); PHOSPHORUS 3.1 MG/DL (2.3-4.5); SODIUM 137 MMOL/L (135-145); TOTAL CARBON DIOXIDE 26.3 MMOL/L (24-32); TOTAL PROTEIN 5.9 G/DL (6.4-8.2); eGFR 57 ML/MIN
[2018-10-05 01:41] LABS: POTASSIUM 2.7 MMOL/L (3.5-5.1)
[2018-10-05 01:51] LABS: ANISOCYTOSIS 1+; PLATELET ESTIMATE NORMAL
[2018-10-05 01:52] LABS: BURR CELLS 1+; SCHISTOCYTES FEW
--- NOTE | 2018-10-05 02:00 | NUR ---
Critical K of 2.7, Dr. Law notified. Will replace per protocol.
[2018-10-05] MEDS: potassium Cl 20 mEq SR tablet PO PRN ×4 (02:05→20:50)
--- NOTE | 2018-10-05 06:00 | NUR ---
Patient in room PCU 3023. I have received report from Susan SAENZ and had the opportunity to ask questions and assume patient care.
--- NOTE | 2018-10-05 06:03 | NUR ---
Problems reprioritized. Patient report given, questions answered & plan of care reviewed with Kaycee SAENZ.
[2018-10-05] MEDS: K and/or MAG REPLACEMENT MC SCH (08:00)
[2018-10-05] MEDS: furosemide 40mg/4ml inj IV SCH ×2 (09:03→19:18)
[2018-10-05] MEDS: clopidogrel 75mg tablet PO SCH (09:07)
[2018-10-05] MEDS: metoprolol tartrate 25mg tablet PO SCH ×2 (09:07→19:18)
[2018-10-05] MEDS: spironolactone 25 MG tablet PO SCH (09:09)
[2018-10-05] MEDS: multivitamins, therapeutics tablet PO SCH (12:36)
[2018-10-05] MEDS: folic acid 1mg tablet PO SCH (12:36)
[2018-10-05] MEDS: thiamine 100mg tablet PO SCH (12:36)
--- NOTE | 2018-10-05 15:00 | NUR ---
Called [facility] for update on when KUB is to take place.
--- NOTE | 2018-10-05 17:47 | NUR ---
This nurse agrees with Ezekiel maintenance journeyman.
--- NOTE | 2018-10-05 17:58 | NUR ---
removed rectal tube per MD order, pt dale procedure without complaints
--- NOTE | 2018-10-05 18:10 | NUR ---
Patient in room PCU 3023. I have received report from Kaycee SAENZ & Dyan SAENZ and had the opportunity to ask questions and assume patient care.
--- NOTE | 2018-10-05 18:16 | NUR ---
Called [facility] for update on when KUB is to take place. Waiting on callback
--- NOTE | 2018-10-05 18:20 | NUR ---
Problems reprioritized. Patient report given, questions answered & plan of care reviewed with Susan SAENZ.
[2018-10-06] MEDS: potassium Cl 20 mEq SR tablet PO PRN (01:31)
[2018-10-06 03:00] VITALS: BP 110/70
[2018-10-06 06:00] VITALS: BP 114/66
[2018-10-06 06:12] LABS: BASOPHILS % (AUTO) 0.4 % (0-1); EOSINOPHILS # (AUTO) 0.1 X10'3 (0-0.9); EOSINOPHILS % (AUTO) 1.4 % (0-6); HEMATOCRIT 34.1 % (42.0-52.0); HEMOGLOBIN 11.4 g/dl (14.0-17.9); LYMPHOCYTES # (AUTO) 1.5 X10'3 (1.1-4.8); LYMPHOCYTES % (AUTO) 17.8 % (21-51); MEAN CORPUSCULAR HEMOGLOBIN 28.3 PG (27.0-31.0); MEAN CORPUSCULAR HGB CONC 33.3 g/dL (33.0-36.5); MEAN CORPUSCULAR VOLUME 85.1 FL (78-98); MEAN PLATELET VOLUME 9.6 FL (7.4-10.4); MONOCYTES # (AUTO) 1.1 X10'3 (0-0.9); NEUTROPHILS # (AUTO) 5.8 X10'3 (1.8-7.7); NEUTROPHILS % (AUTO) 67.4 % (42-75); PLATELET COUNT 185 X10'3 (140-440); RED BLOOD COUNT 4.01 X10'6 (4.70-6.10); RED CELL DISTRIBUTION WIDTH 17.4 % (11.5-14.5); WHITE BLOOD COUNT 8.6 X10'3 (4.5-11.0)
--- NOTE | 2018-10-06 06:24 | NUR ---
Problems reprioritized. Patient report given, questions answered & plan of care reviewed with Ese SAENZ.
--- NOTE | 2018-10-06 06:30 | NUR ---
Assumed patient care JADEN Ibanez
[2018-10-06 06:33] LABS: ALANINE AMINOTRANSFERASE 55 U/L (12-78); ALBUMIN 2.4 G/DL (3.4-5.0); ALBUMIN/GLOBULIN RATIO 0.8 (1.1-1.5); ALKALINE PHOSPHATASE 168 IU/L (46-116); ANION GAP 10 (8-16); ASPARTATE AMINO TRANSFERASE 36 U/L (10-37); BILIRUBIN,TOTAL 1.1 MG/DL (0.1-1.0); BLOOD UREA NITROGEN 21 MG/DL (7-18); BUN/CREATININE RATIO 17.4 (5.4-32.0); CALCIUM 8.8 MG/DL (8.5-10.1); CHLORIDE 104 MMOL/L (99-107); CREATININE 1.21 MG/DL (0.60-1.10); GLUCOSE 92 MG/DL (70-104); MAGNESIUM 1.9 MG/DL (1.5-2.4); PHOSPHORUS 2.7 MG/DL (2.3-4.5); POTASSIUM 3.5 MMOL/L (3.5-5.1); SODIUM 139 MMOL/L (135-145); TOTAL CARBON DIOXIDE 25.1 MMOL/L (24-32); TOTAL PROTEIN 5.6 G/DL (6.4-8.2); eGFR 58 ML/MIN
[2018-10-06] MEDS: K and/or MAG REPLACEMENT MC SCH (08:00)
[2018-10-06] MEDS: furosemide 40mg/4ml inj IV SCH (08:00)
[2018-10-06] MEDS: folic acid 1mg tablet PO SCH (08:03)
[2018-10-06] MEDS: multivitamins, therapeutics tablet PO SCH (08:03)
[2018-10-06] MEDS: thiamine 100mg tablet PO SCH (08:03)
[2018-10-06] MEDS: spironolactone 25 MG tablet PO SCH (08:04)
[2018-10-06] MEDS: clopidogrel 75mg tablet PO SCH (08:04)
[2018-10-06] MEDS: metoprolol tartrate 25mg tablet PO SCH (08:05)
[2018-10-06] MEDS ORDERED: FURO-149 PO (09:25)
[2018-10-06] MEDS ORDERED: MULT1TAB74 PO (09:26)
[2018-10-06] MEDS ORDERED: FOLI0.4T2 PO (09:27)
[2018-10-06] MEDS ORDERED: THIA100T70 PO (09:28)
[2018-10-06] MEDS ORDERED: ATOR40TA PO (09:28)
[2018-10-06] MEDS ORDERED: SPIR25TA5 PO (09:29)
--- NOTE | 2018-10-06 10:54 | NUR ---
Please call [phone] patient Ana Tree have a Cheung catheter in and on Cliar liq diet and have a D/C order Ese SAENZ
[2018-10-06 11:00] VITALS: BP 119/69
--- NOTE | 2018-10-06 13:50 | NUR ---
Jonatan D/C @ 1200 patient void no problem walk in the floor stable, D/C order received, D/C IV all instruction given will out in the wheelchaire D/C home with .Andrew Ibanez RN
== END 2018-10-06 13:55 | disposition home or self-care (01) | DRG 682 ==
LOC: ER 12:28 → PCU 3S 16:46 → CMPBEDREQ 20:17
PROVIDERS: ADMIT Hospitalist; ATTEND Hospitalist
DX: N17.9 Acute kidney failure, unspecified (principal); I50.33 Acute on chronic diastolic (congestive) heart failure; L03.115 Cellulitis of right lower limb; I11.0 Hypertensive heart disease with heart failure; E87.6 Hypokalemia; I25.10 Atherosclerotic heart disease of native coronary artery without angina pectoris; F10.20 Alcohol dependence, uncomplicated; Y90.9 Presence of alcohol in blood, level not specified; Z95.1 Presence of aortocoronary bypass graft
CPT/HCPCS: 36415; 71045; 80053; 82948; 83605; 83735; 83880; 84100; 84132; 84484; 85025; 85610; 87070; 93005; 93306; 99285; G0378; J0696; J1644; J1940; J3411; J3490; J7030; J7060